=== PATIENT | male | born 1950 | race Caucasian/White ===

== ENCOUNTER 2016-12-12 08:02 | Day surgery (SDC) | payer MEDICARE ==
[~2016-12-12 08:02] MED LIST: Kenalog-40 IM ONE; Lactated Ringers 1,000 ML IV ONE; Sensorcaine 0.25% 10 ML IJ ONE
[2016-12-12] MEDS ORDERED: DIPRIVAN 200 MG/20 ML IV ONE (09:00)
--- NOTE | 2016-12-12 14:50 | XRAY ---
Indication: Left C3-C8 MBB. Intraoperative fluoroscopy was provided for 29 seconds. Single digital spot image submitted for interpretation demonstrates posterior spinal needles with the tips projecting over the expected course of the left C5-C8 nerve roots. Correlate with intraoperative findings/report.
--- NOTE | 2016-12-12 14:56 | XRAY ---
29 seconds fluoroscopy time in surgery for left C5-8 MBB.
== END 2016-12-12 12:00 | disposition home or self-care (01) ==
LOC: SDC-PAIN 08:02
PROVIDERS: ATTEND Pain Medicine Interventional Pain Medicine
DX: M47.22 Other spondylosis with radiculopathy, cervical region (principal); M25.511 Pain in right shoulder; M25.512 Pain in left shoulder; Z79.891 Long term (current) use of opiate analgesic
CPT/HCPCS: 64490; 64491; 64492; 72020; 77003; J2704; J3301

== ENCOUNTER 2018-07-19 17:46 | Emergency (ER) | payer MEDICARE ==
[2018-07-19] MEDS ORDERED: solu-MEDROL 125 MG IV ONE (18:25)
[2018-07-19] MEDS ORDERED: DUONEB 0.5-3 MG/3 ml Neb IH ONE ×2 (18:25→19:03)
[2018-07-19] MEDS ORDERED: Sodium Chloride 0.9% 1000 ML 1,000 ML IV SCH (18:30)
--- NOTE | 2018-07-19 18:34 | ERPHSYRPT ---
- History of Present Illness Source: patient Exam Limitations: no limitations Patient Subjective Stated Complaint: sinus drainage and a cough Triage Nursing Assessment: Pt c/o of sinus drainage and cough, went to see Dr. De Dios on Saturday and was prescribed a Z pack for his sinuses and completed it this morning, lung sounds are diminished, smoker for 50 years, pulses normal, vitals wnl, reports sputum as yellow and thick, rates pain 3/10 in chest from coughing, denies any other issues at this time Timing/Duration: day(s) (4 days) Severity: moderate Modifying Factors: Improves With: medication (patient on Z-Omreo) Associated Symptoms: shortness of breath, cough, chest pain (burning pain in chest with breathing and coughing), No nausea, No vomiting, No abdominal pain, No heartburn, No diaphoresis, No chills, No fever, No headaches, No loss of appetite, No malaise (Skin the CT) Hx Influenza Vaccination/Date Given: Yes (2017) Hx Pneumococcal Vaccination/Date Given: Yes (due 2019) <MIGUEL A VELASCO - Last Filed: 07/19/18 19:04> <JAMI MORA - Last Filed: 07/19/18 22:48> - History of Present Illness Time Seen by Provider: 07/19/18 18:11 Physician History: 67-year-old white male with history of peripheral neuropathy, diabetes type 2, COPD, congestive heart failure, coronary artery disease, hyperlipidemia, chronic pain syndrome Patient arrives with complaint of by lateral frontal sinus congestion thick mucus from his nose cough symptoms since last Saturday 4 days ago, He states he was seen by Dr. De Dios and placed on a Z-Omero he now states he is having the above noted symptoms and having wheezing in his chest and burning in his anterior chest with breathing for 2 days, He has no vomiting no fevers, Past medical history includes peripheral neuropathy, chronic neck pain, chronic pain, diabetes, COPD, congestive heart failure, coronary artery disease, hyperlipidemia, high blood pressure, myocardial infarction, osteoarthritis, restless legs.. Past surgical history includes CABG, right total hip arthroplasty (MIGUEL A VELASCO) Allergies/Adverse Reactions: gabapentin [From Neurontin] Allergy (Verified 12/09/15 09:34) ketorolac tromethamine [From Toradol] Allergy (Verified 07/19/18 18:05) methadone Allergy (Verified 12/09/15 09:34) morphine Allergy (Verified 12/09/15 09:34) Home Medications: Ascorbic Acid 500 mg [Vitamin C 500 MG] 500 mg PO BID 12/09/15 [History] Aspirin [Aspirin EC] 81 mg PO HS 12/09/15 [History] Atorvastatin Calcium [Lipitor 40Mg] 40 mg PO HS 12/09/15 [History] Carvedilol 3.125 mg [Coreg 3.125 MG] 3.125 mg PO BID 12/09/15 [History] Cholecalciferol (Vitamin D3) [Vitamin D3] 5,000 unit PO .WEEKLY 12/09/15 [ History] Citalopram Hydrobromide 20 mg* [ceLEXa 20 MG] 20 mg PO BID 12/09/15 [History] Metformin HCl 500 mg [Glucophage 500 MG] 500 mg PO BID 12/09/15 [History] PANTOPRAZOLE 40 mg Tablet [Protonix 40MG Tablet] 40 mg PO HS 12/09/15 [ History] Ranitidine HCl 150 mg PO BID 12/09/15 [History] Tizanidine HCl 6 mg PO TID 12/09/15 [History] Warfarin Sodium 5 mg [Coumadin 5 MG] 2.5 mg PO UD 12/09/15 [History] Sacubitril/Valsartan [Entresto 49 mg-51 mg Tablet] 1 each PO BID 04/24/16 [ History] Cyanocobalamin (Vitamin B-12) [Vitamin B12] 2,500 mcg PO DAILY 12/04/16 [History ] Albuterol 2.5 mg/3 ml Neb [Proventil 2.5 mg/3 ml Neb] 2.5 mg IH UD PRN 09/05 [History] - Past Medical History Pertinent Past Medical History: Yes Neurological History: Peripheral Neuropathy Cardiac History: Congestive Heart Failure, Coronary Artery Disease, High Cholesterol, Hypertension, Myocardial Infarction ([place]) Respiratory History: COPD Endocrine Medical History: Diabetes Type II Musculoskeletal History: Osteoarthritis Other Medical History: CABG X 4 IN 2013. RIGHT TOTAL HIP REPLACEMENT 2011. RESTLESS LEG SYNDROME - Past Surgical History Past Surgical History: Yes Cardiac: CABG - Social History Smoking Status: Current every day smoker How long have you smoked: 50 years Exposure to second hand smoke: No Drug Use: none Patient Lives Alone: No <MIGUEL A VELASCO - Last Filed: 07/19/18 19:04> - Physical Exam SpO2: 96 Oxygen Delivery: Room Air <MIGUEL A VELASCO - Last Filed: 07/19/18 19:04> - Nursing Vital Signs Nursing Vital Signs: Initial Vital Signs Temperature 98.7 F 07/19/18 17:52 Pulse Rate 83 07/19/18 17:52 Blood Pressure 109/72 07/19/18 17:52 O2 Sat by Pulse Oximetry 95 07/19/18 17:52 Pain Scale Pain Intensity 0 - Course Nursing assessment & vital signs reviewed: Yes EKG Interpreted by Me: RATE (86 bpm), Sinus Rhythm, NORMAL AXIS, Other (EKG, sinus rhythm with artifact, 86 bpm, normal axis, no acute st or t wave changes noted.) <MIGUEL A VELASCO - Last Filed: 07/19/18 19:04> - Radiology Exams Chest X-ray Interpretation: Interpreted by me (COPD, DIFFUSE INTERSTITIAL MARKINGS) <JAMI MORA - Last Filed: 07/19/18 22:48> Ordered Tests: Active Orders 24 hr Category Date Time Status Manager Manufacturing STAT Care 07/19/18 18:25 Active EKG-ER Only STAT Care 07/19/18 18:25 Active IV Insertion STAT Care 07/19/18 18:25 Active IV Insertion-2nd Peripheral STAT Care 07/19/18 21:15 Active Oxygen-ED Only NASAL CANNULA 2 lpm Care 07/19/18 21:14 Active Pulse Oximetry (ED) STAT Care 07/19/18 18:25 Active CHEST 1 VIEW (PORTABLE) Stat Exams 07/19/18 18:52 Completed BLOOD CULTURE Stat Lab 07/19/18 18:45 Received CBC W DIFF Stat Lab 07/19/18 18:45 Completed CMP Stat Lab 07/19/18 18:45 Completed Lactic Acid Stat Lab 07/19/18 18:45 Completed NT PRO BNP Stat Lab 07/19/18 18:45 Completed TROPONIN Q3H Lab 07/19/18 18:45 Completed TROPONIN Q3H Lab 07/19/18 21:51 Completed TROPONIN Q3H Lab 07/20/18 00:30 Ordered TROPONIN Q3H Lab 07/20/18 03:30 Ordered TROPONIN Q3H Lab 07/20/18 06:30 Ordered VENOUS BLOOD GAS Stat Lab 07/19/18 18:45 Completed Peak Expiratory Flow Rate ONCE RT 07/19/18 19:11 Active Respiratory Nebulizer STAT RT 07/19/18 18:26 Completed Respiratory Nebulizer STAT RT 07/19/18 19:28 Completed Respiratory Therapy Assessment DAILY RT 07/19/18 19:11 Active Medication Summary Generic Name Dose Route Start Last Admin Trade Name Freq PRN Reason Stop Dose Admin Sodium Chloride 1,000 mls @ 100 mls/hr 07/19/18 18:30 07/19/18 18:44 Sodium Chloride 0.9% 1000 Ml IV 08/18/18 18:29 100 mls/hr .Q10H KOREY Administration Discontinued Medications Generic Name Dose Route Start Last Admin Trade Name Freq PRN Reason Stop Dose Admin Albuterol Sulfate 10 mg 07/19/18 19:27 07/19/18 19:34 Proventil 2.5 Mg/3 Ml Neb IH 07/19/18 19:28 10 mg STAT ONE Administration Albuterol Sulfate Confirm 07/19/18 19:33 Proventil 2.5 Mg/3 Ml Neb Administered 07/19/18 19:34 Dose 10 mg IH .STK-MED ONE Albuterol/Ipratropium 3 ml 07/19/18 18:25 07/19/18 19:05 Duoneb 0.5-3 Mg/3 Ml Neb IH 07/19/18 18:26 3 ml STAT ONE Administration Albuterol/Ipratropium Confirm 07/19/18 19:03 Duoneb 0.5-3 Mg/3 Ml Neb Administered 07/19/18 19:04 Dose 3 ml IH .STK-MED ONE Ceftriaxone Sodium/Dextrose 1 g in 50 mls @ 100 mls/hr 07/19/18 19:30 20:11 Rocephin 1 Gm-D5w 50 Ml Bag IV 07/19/18 19:59 Infused STAT STA Infusion Ceftriaxone Sodium/Dextrose Confirm 07/19/18 19:40 Rocephin 1 Gm-D5w 50 Ml Bag Administered 07/19/18 19:41 Dose 1 g in 50 mls @ ud IV .STK-MED ONE Methylprednisolone Sodium Succinate 125 mg 07/19/18 18:25 07/19/18 18:44 Solu-Medrol 125 Mg IV 07/19/18 18:26 125 mg STAT ONE Administration Methylprednisolone Sodium Succinate Confirm 07/19/18 18:40 Solu-Medrol 125 Mg Administered 07/19/18 18:41 Dose 125 mg .ROUTE .STK-MED ONE Lab/Rad Data: Laboratory Result Diagrams 07/19/18 18:45 07/19/18 18:45 Laboratory Results 07/19/18 07/19/18 07/19/18 Range/Units 21:51 18:45 18:45 WBC (4.0-10.5) K/mm3 RBC (4.1-5.6) M/mm3 Hgb (12.5-18.0) gm/dl Hct (42-50) % MCV (78-100) fl MCH (26-32) pg MCHC (32-36) g/dl RDW (11.5-14.0) % Plt Count (150-450) K/mm3 MPV (6-9.5) fl Gran % (36.0-66.0) % Eos # (Auto) (0-0.5) Absolute Lymphs (auto) (1.0-4.6) Absolute Monos (auto) (0.0-1.3) Lymphocytes % (24.0-44.0) % Monocytes % (0.0-12.0) % Eosinophils % (0.00-5.0) % Basophils % (0.0-0.4) % Absolute Granulocytes (1.4-6.9) Basophils # (0-0.4) pO2/FiO2 Ratio % VBG pH (7.32-7.42) VBG pCO2 at Pat Temp (42-55) mm/Hg VBG pO2 at Pat Temp (25-40) mm/Hg VBG HCO3 (22-28) meq/L VBG O2 Sat (Janee) (95-100) VBG Base Excess (-2.0-2.0) VBG Hemoglobin VBG Carboxyhemoglobin (0.0-6.9) % T HGB POC Potassium (3.5-5.1) Sodium 135 L (137-145) mmol/L Potassium 3.9 (3.5-5.1) mmol/L Chloride 103 (98-107) mmol/L Carbon Dioxide 23 (22-30) mmol/L Anion Gap 13.2 (5-15) MEQ/L BUN 14 (9-20) mg/dL Creatinine 1.25 (0.66-1.25) mg/dL Estimated GFR > 60.0 ML/MIN Glucose 193 H (74-106) mg/dL Lactic Acid (0.4-2.0) Calcium 8.6 (8.4-10.2) mg/dL Total Bilirubin 0.70 (0.2-1.3) mg/dL AST 20 (17-59) U/L ALT 19 (0-50) U/L Alkaline Phosphatase 81 (38-126) U/L Troponin I < 0.012 < 0.012 (0.000-0.034) ng/mL NT-Pro-B Natriuret Pep 232 (0-900) pg/mL Serum Total Protein 6.6 (6.3-8.2) g/dL Albumin 4.0 (3.5-5.0) g/dL 07/19/18 07/19/18 Range/Units 18:45 18:45 WBC 4.7 (4.0-10.5) K/mm3 RBC 3.86 L (4.1-5.6) M/mm3 Hgb 12.1 L (12.5-18.0) gm/dl Hct 37.4 L (42-50) % MCV 96.9 (78-100) fl MCH 31.3 (26-32) pg MCHC 32.4 (32-36) g/dl RDW 14.0 (11.5-14.0) % Plt Count 127 L (150-450) K/mm3 MPV 11.7 H (6-9.5) fl Gran % 63.3 (36.0-66.0) % Eos # (Auto) 0.18 (0-0.5) Absolute Lymphs (auto) 1.01 (1.0-4.6) Absolute Monos (auto) 0.54 (0.0-1.3) Lymphocytes % 21.3 L (24.0-44.0) % Monocytes % 11.4 (0.0-12.0) % Eosinophils % 3.8 (0.00-5.0) % Basophils % 0.2 (0.0-0.4) % Absolute Granulocytes 3.00 (1.4-6.9) Basophils # 0.01 (0-0.4) pO2/FiO2 Ratio 21.0 % VBG pH 7.34 (7.32-7.42) VBG pCO2 at Pat Temp 44 (42-55) mm/Hg VBG pO2 at Pat Temp 28 (25-40) mm/Hg VBG HCO3 23.7 (22-28) meq/L VBG O2 Sat (Janee) 61.2 L (95-100) VBG Base Excess -2.2 L (-2.0-2.0) VBG Hemoglobin 12.3 VBG Carboxyhemoglobin 5.9 (0.0-6.9) % T HGB POC Potassium 3.8 (3.5-5.1) Sodium (137-145) mmol/L Potassium (3.5-5.1) mmol/L Chloride (98-107) mmol/L Carbon Dioxide (22-30) mmol/L Anion Gap (5-15) MEQ/L BUN (9-20) mg/dL Creatinine (0.66-1.25) mg/dL Estimated GFR ML/MIN Glucose (74-106) mg/dL Lactic Acid 1.7 (0.4-2.0) Calcium (8.4-10.2) mg/dL Total Bilirubin (0.2-1.3) mg/dL AST (17-59) U/L ALT (0-50) U/L Alkaline Phosphatase (38-126) U/L Troponin I (0.000-0.034) ng/mL NT-Pro-B Natriuret Pep (0-900) pg/mL Serum Total Protein (6.3-8.2) g/dL Albumin (3.5-5.0) g/dL - Progress Progress: improved <MIGUEL A VELASCO - Last Filed: 07/19/18 19:04> - Progress Progress: improved Counseled pt/family regarding: lab results, diagnosis, need for follow-up, rad results <JAMI MORA - Last Filed: 07/19/18 22:48> - Progress Progress Note: 07/19/18 19:04 The patient's case has been discussed with Dr. Mora. Dr. Mora will assume care of this patient due to shift change (MIGUEL A VELASCO) 07/19/18 19:43 EXAM- CHEST CLEAR BREATH SOUNDS EXCEPT FOR TERMINAL EXPIRATORY WHEEZES, NO RHONCHI , ADMINISTERED IV ROCEPHIN 1GM AFTER 2 SETS OF BLOOD CULTURES, SOLUMEDROL 125MG IV, ALBUTEROL AEROSOL 10MG CONTINUOUS OVER 1 HOUR. 07/19/18 19:44 WHEEZES RESOLVED 07/19/18 22:38 (JAMI MORA) <MIGUEL A VELASCO - Last Filed: 07/19/18 19:04> - Departure Time of Disposition: 22:55 Departure Disposition: Home Critical Care Time: No <JAMI MORA - Last Filed: 07/19/18 22:48> - Departure Clinical Impression: ACUTE EXACERBATION COPD Condition: Stable Referrals: CASH DE DIOS MD [Primary Care Provider] - Additional Instructions: ANTIBIOTIC AUGMENTIN 875MG TWICE DAILY FOR 10 DAYS. PREDNISONE 20MG, 2 TABLETS DAILY FOR 5 DAYS. CONTINUE ALBUTEROL AEROSOL TREATMENTS EVERY 4 HOURS NEEDED. FOLLOWUP WITH YOUR PRIMARY CARE PROVIDER IN 1 WEEK. RETURN TO EMERGENCY ROOM FOR DIFFICULTY BREATHING. Prescriptions: Amox Tr/Potass Clav. 875 mg [Augmentin 875-125 Tablet] 1 each PO BID 10 Days #20 tablet Prednisone 20 mg [Deltasone 20 mg] 2 tab PO DAILY #10 tablet
[2018-07-19] MEDS ORDERED: solu-MEDROL 125 MG ONE (18:40)
[2018-07-19] MEDS ORDERED: Sodium Chloride 0.9% 1000 ML 1,000 ML ONE ×2 (18:40→21:08)
[2018-07-19 18:57] LABS: BASOPHIL % 0.2 % (0.0-0.4); Basophil (Absolute #) 0.01 (0-0.4); Eosinophil % 3.8 % (0.00-5.0); Eosinophil (Absolute #) 0.18 (0-0.5); Granulocytes % 63.3 % (36.0-66.0); Hematocrit 37.4 % (42-50); Hemoglobin 12.1 gm/dl (12.5-18.0); Lymphocyte (Absolute #) 1.01 (1.0-4.6); Lymphocytes % 21.3 % (24.0-44.0); Mean Cell Volume 96.9 fl (78-100); Mean Corpuscular Hemoglobin 31.3 pg (26-32); Mean Corpuscular Hgb Concent. 32.4 g/dl (32-36); Mean Platelet Volume 11.7 fl (6-9.5); Monocyte (Absolute #) 0.54 (0.0-1.3); Monocytes % 11.4 % (0.0-12.0); Platelet Count 127 K/mm3 (150-450); Red Blood Count 3.86 M/mm3 (4.1-5.6); White Blood Count 4.7 K/mm3 (4.0-10.5)
[2018-07-19 19:02] LABS: Lactic Acid 1.7 (0.4-2.0); VBG BASE EXCESS -2.2 (-2.0-2.0); VBG CARBOXYHEMOGLOBIN 5.9 % T HGB (0.0-6.9); VBG HCO3- 23.7 meq/L (22-28); VBG HEMOGLOBIN 12.3; VBG O2 SATURATION 61.2 (95-100); VBG POTASSIUM 3.8 (3.5-5.1); VBG pH 7.34 (7.32-7.42)
[2018-07-19 19:23] LABS: ALKALINE PHOSPHATASE 81 U/L (38-126); ANION GAP 13.2 MEQ/L (5-15); BLOOD UREA NITROGEN 14 mg/dL (9-20); CHLORIDE 103 mmol/L (98-107); Calcium 8.6 mg/dL (8.4-10.2); Carbon Dioxide 23 mmol/L (22-30); Creatinine 1 1.25 mg/dL (0.66-1.25); Glucose 193 mg/dL (74-106); NT PRO BNP 232 pg/mL (0-900); Potassium 3.9 mmol/L (3.5-5.1); SGOT/AST 20 U/L (17-59); SGPT/ALT 19 U/L (0-50); SODIUM 135 mmol/L (137-145); Total Protein 6.6 g/dL (6.3-8.2)
[2018-07-19] MEDS ORDERED: PROVENTIL 2.5 MG/3 ML NEB IH ONE ×2 (19:27→19:33)
[2018-07-19] MEDS ORDERED: ROCEPHIN 1 Gm-D5w 50 ml Bag** 1 G/50 ML IVPB IV STA (19:30)
[2018-07-19] MEDS ORDERED: ROCEPHIN 1 Gm-D5w 50 ml Bag** 1 G/50 ML IVPB IV ONE (19:40)
--- NOTE | 2018-07-19 21:26 | XRAY ---
Indication: Nonproductive cough. Dyspnea on exertion. Comparison: February 20, 2014. Portable chest remains clear. Heart is not enlarged again with CABG surgery. Bony thorax intact again with mild osteopenia and degenerative changes. Impression: Stable nonacute chest with chronic features.
[2018-07-19 22:59] VITALS: BP 120/56; PULSE 76; O2SAT 94
== END 2018-07-19 23:04 | disposition home or self-care (01) ==
LOC: ED 17:46
DX: J44.1 Chronic obstructive pulmonary disease with (acute) exacerbation (principal); E11.9 Type 2 diabetes mellitus without complications; Z79.84 Long term (current) use of oral hypoglycemic drugs; Z79.01 Long term (current) use of anticoagulants; I25.10 Atherosclerotic heart disease of native coronary artery without angina pectoris
CPT/HCPCS: 36000; 36415; 71045; 80053; 82805; 83605; 83880; 84484; 85025; 87040; 93005; 93041; 94150; 94640; 96360; 96365; 96374; 99285; J0696; J2930; J7609; A9270-GY